=== PATIENT | male | born 1985 | race Caucasian/White ===

== ENCOUNTER → 2020-06-06 15:18 | Outpatient (CLI) | payer OTHER, SELFPAY ==
[2020-06-06 11:29] VITALS: BMI 41.8
== END ==
PROVIDERS: Referring Provider Physician Assistant Surgical; Visit Provider Physician Assistant Surgical
DX: Z20.828 Contact with and (suspected) exposure to other viral communicable diseases (principal)
CPT/HCPCS: 87635; U0003

== ENCOUNTER → 2020-06-20 | Outpatient (CLI) | payer OTHER, SELFPAY ==
[2020-06-06 11:29] VITALS: BMI 41.8
== END | disposition home or self-care (01) ==
LOC: LABSPEC 10:17
PROVIDERS: Visit Provider Physician Assistant Surgical
DX: Z02.89 Encounter for other administrative examinations (principal)
CPT/HCPCS: 87635; U0003

== ENCOUNTER → 2022-10-07 | Outpatient (CLI) | payer OTHER, SELFPAY ==
--- NOTE | 2022-10-07 13:01 | VDLE_ITS ---
Reason For Study: Edema RIGHT LEFT GSV is normal. CFV is compressible, spontaneous, phasic, CFV is compressible, spontaneous, phasic, competent, and demonstrates normal competent and demonstrates normal augmentation. augmentation. FV is compressible, spontaneous, phasic, competent and demonstrates normal augmentation. POP V is compressible, spontaneous, phasic, competent and demonstrates normal augmentation. T/P Trunk is compressible. PTV is compressible. RT PerV is compressible. multiple varicosities noted around patients rt knee. Procedure This is a venous duplex using B-mode, color flow and spectral Doppler. Exam performed in department. The exam was diagnostic. A preliminary report was called and/or faxed to Zaina Skaggs office. VL/Venous Duplex US, Unilateral Interpretation Summary Deep veins of the right lower extremity are patent and compressible segmentally . There is no evidence of right lower extremity deep vein thrombosis. The right great sapheno us vein appears patent and compressible segmentally. Incidental finding, right lower extremity varicosities Ordering Physician: Zaina Skaggs Referring Physician: Zaina Skaggs Performed By: Topher Cowan RVT
== END | disposition home or self-care (01) ==
LOC: CVS 13:00
PROVIDERS: Referring Provider Nurse Practitioner Primary Care; Visit Provider Nurse Practitioner Primary Care
DX: R60.0 Localized edema (principal)
CPT/HCPCS: 93971

== ENCOUNTER 2022-10-25 10:00 | Outpatient (RCR) | payer OTHER, SELFPAY ==
[2022-10-22 09:06] VITALS: BP 130/82; PULSE 81; RESP 20; TEMP 35.9; BMI 47.7
--- NOTE | 2022-10-22 15:10 | PCM.WC.HP ---
History of Present Illness Date of Service: 10/22/22 Chief Complaint: Chronic venous hypertension with inflammation, chronic venous insufficiency, varicose veins with inflammation, history of spontaneous bleeding from a superficial vein?right lower extremity History of Wound: This is a morbidly obese diabetic 37-year-old male who presents with a history of swelling and edema in his lower extremities, and an episode of spontaneous bleeding from the right anterolateral calf which occurred approximately 4 months ago. The bleeding occurred on only 1 occasion, and has not recurred. At the time, the patient states that it really squirted. After applying manual pressure for a period of time, the bleeding ceased. Following that episode, he was treated with Augmentin 875 mg / 125 mg every 12 hours, and Silvadene 1% topical cream to the area. He has more recently been treated for swelling and erythema in his distal right lower extremity, with a prescription for doxycycline and corticosteroids. The patient claims to sleep on a flat mattress at night. He denies a history of thrombophlebitis. Venous duplex examination was performed on October 07, 2022, which was negative for thrombophlebitis, but did not include valvular assessment in the superficial venous system. Patient is employed in [employer] at [employer], and is on his feet for long hours each day. The patient denies a history of hypertension, myocardial infarction, cerebrovascular accident, hyperlipidemia, pulmonary disease, renal disease, and thyroid disease. FOR[facility]LY [facility] Medical History (Updated 10/22/22 @ 15:[address] Richar George MD) Anxiety and depression Back problem Bone fracture Chronic venous hypertension with inflammation involving right side Chronic venous insufficiency of lower extremity Contact with and (suspected) exposure to covid-19 Daytime sleepiness Diabetes mellitus type 2 in obese GERD (gastroesophageal reflux disease) Headache History of migraine headaches Leg edema Leg swelling Morbid obesity with BMI of 45.0-49.9, adult Type 2 diabetes mellitus Varicose veins of both lower extremities with inflammation Home Medications acetaminophen 500 mg tablet (Tylenol Extra Strength) PO 05/20/18 [History Last Taken Unknown] calcium carbonate 200 mg calcium (500 mg) chewable tablet (Tums) 200 mg PO DAILY PRN 05/20/18 [History Last Taken Unknown] glipizide 10 mg tablet 10 mg PO DAILY #30 tabs 05/20/18 [Rx Last Taken Unknown] bromocriptine 0.8 mg tablet (Cycloset) mg 10/22/22 [History Last Taken Unknown] dapagliflozin 10 mg tablet (Farxiga) 10 mg PO DAILY 10/22/22 [History Last Taken Unknown] linagliptin 5 mg tablet (Tradjenta) mg 10/22/22 [History Last Taken Unknown] rosuvastatin 5 mg tablet 5 mg PO DAILY 10/22/22 [History Last Taken Unknown] tetracycline 250 mg capsule 75 mg 10/22/22 [History Last Taken Unknown] Allergy/AdvReac Type Severity Reaction Status Date / Time metformin Allergy Unknown Diarrhea Verified 10/22/22 09:18 shrimp Allergy Angioedema Verified 10/22/22 09:18 semaglutide [From Ozempic] AdvReac Rash Verified 10/22/22 09:18 Family History Grandfather Cancer Diabetes Grandmother Cancer Diabetes Mother Kidney stones Aunt Thyroid cancer Thyroid disorder Social History Smoking Status: Never smoker alcohol intake: never substance use type: does not use Vital Signs Vital Signs Vital Signs: 10/22/22 09:06 Temperature 96.6 F L Temperature Source Temporal Pulse Rate 81 Respiratory Rate 20 H Blood Pressure 130/82 H Blood Pressure Mean 98 Blood Pressure Source Monitor Weight Weight: 352 lb 0.434 oz Body Mass Index (BMI) 47.7 Physical Exam Const alert, oriented x3, no apparent distress and well nourished Constitutional Narrative: The patient is morbidly obese, with a BMI of 48.7. General Appearance: cooperative, comfortable, well kempt and well developed Orientation / Consciousness: awake, oriented to person, oriented to place and oriented to time Exam Limitations: no limitations HEENT normocephalic, head/scalp atraumatic and hearing grossly normal bilaterally Head and Scalp: normal to inspection, normocephalic and atraumatic Face and Sinus: normal facial exam Nose: external nose normal External Ear: external ears normal Eyes PERRL and EOMs intact bilaterally General Eye: normal appearance of both eyes Resp normal respiratory effort, normal air movement, no retractions and no use of accessory muscles Effort and Inspection: able to speak in complete sentences GI GI Narrative: Patient's abdomen is obese. Extremity no calf tenderness General Extremity: Negative for clubbing or cyanosis Skin Wound Narrative: Minimal swelling and edema are noted in the patient's lower extremities bilaterally. There is a slight on the right anterior lateral portion of his calf with some discoloration, said to be the site of spontaneous bleeding approximately 4 months ago. Allison phlebectatica is noted bilaterally at ankle level, as well as scattered varicosities in the lower extremities bilaterally. Neuro oriented x3, CN's II-XII intact bilaterally, moves all extremities and no focal motor deficits Sensorium / Orientation: awake, alert, oriented to person, oriented to place and oriented to time Psych Appearance: grossly normal and appropriate Attitude: calm Activity / Motor Behavior: appropriate eye contact Speech: normal speech Mood & Affect: euthymic mood Thought Process: normal thought process Thought Content: normal thought content Attention / Concentration: attention grossly intact Debridement Note Debridement Note No debridement was completed: No debridement was completed today (There are no open wounds or ulcerations.) Post-Debridement Measurements and Additional Note: Post-Debridement Measurements/Treatment - Nurse 1 - General Ulcer Assessment Start: 10/22/22 09:05 Freq: Status: Active Protocol: TONY Activity Type Activity Date Activity User E-sign Co-sign Detail Recorded Client Recorded Date Recorded By Document 10/22/22 09:06 DL [id number] 10/22/22 09:14 DL 10/22/22 09:06 - Today's Visit Information Type of service Initial Visit Arrival Mode Ambulatory Transfer Assistance None Patient Identification Verified (Name & Yes ) Patient Requires Transmission-Based No Precautions Finger Stick Blood Sugar(mg/dl) (if not checked indicated): Blood Sugar Stated by Patient Height and Weight Height 6 ft Weight 352 lb 0.434 oz Weight in Pounds 352.0 lbs Body Mass Index (BMI) 47.7 BMI Classification Obese BSA - Gabriela 2.71 Vital Signs Temperature (97.8 F-99.1 F) 96.6 F L Temperature Source Temporal Pulse Rate (60-100) 81 Pulse Location Monitor Respiratory Rate (12-18) 20 H Respiratory rate source Observation Blood Pressure (90/60-120/80) 130/82 H Blood Pressure Mean 98 Source Monitor History Since Last Visit- (Skip if this is Patient's initial visit) Left Footwear Regular Shoe Right Footwear Regular Shoe Pain Scale: 0-10 Numeric Is Patient Pain Free? Yes Communication Assessment Preferred language Faroese Able to Read Yes Able to Write No Communication Tools None Right Hearing Abillity Normal Left Hearing Abillity Normal Visual Assistive Devices Glasses Teaching Assessment Preferences Verbal,Written, Demonstration Barriers to Learning None Readiness To Learn Good Willingness to Engage in Self Management Med Activies Readiness to Engage in Self Management Med Activities Anxiety Level Calm Cooperation Cooperative Perception Coherent Interest in Health Problem Asks Questions Education Importance Acknowledges Need Does Patient Smoke tobacco or other No substances Smoking Status Never smoker Is Patient Diabetic Yes Functional Assessment Recent Decline in Ability to Perform Denies Any Declines Culture/Druze/Investigator Internal Affairs Cultural/Druze Needs that may affect No Treatment Plan Would you allow our hospital polish maker to No meet you for the purpose of spiritual/ emotional support? Investigator Internal Affairs to contact place of restorationist No Teaching: Wound Center Discharge Instructions -Person Taught Patient *Welcome to the Wound Center -Person Taught Patient - Nurse 1 - General Ulcer Measurement Start: 10/22/22 09:05 Freq: Status: Active Protocol: Activity Type Activity Date Activity User E-sign Co-sign Detail Recorded Client Recorded Date Recorded By Document 10/22/22 09:06 DL [id number] 10/22/22 09:14 DL 10/22/22 09:06 Wound Center Nurse 1 Right Calf (cm) 52 Right Ankle (cm) 27.5 Left Calf (cm) 51.2 Left Ankle (cm) 27.5 - Nurse 3 - General Ulcer D/C NN Start: 10/22/22 09:05 Freq: Status: Active Protocol: Activity Type Activity Date Activity User E-sign Co-sign Detail Recorded Client Recorded Date Recorded By Document 10/22/22 10:12 MW [id number] 10/22/22 10:14 MW 10/22/22 10:12 Wound Care Center Nurse 3 Right -Lotion applied to leg before No compression wrap -Tubular Bandage Single Layer -Size of Tubigrip Used Size F -Size F ($) 1 Left -Lotion applied to leg before No compression wrap -Tubular Bandage Single Layer -Size of Tubigrip Used Size F -Size F ($) 1 Treatment Response Procedure Tolerated Well Pain Scale: 0-10 Numeric Is Patient Pain Free? No Teaching: Wound Center Compression Wraps & Stockings -Person Taught Patient -Teaching Method Discussion, Demonstration -Response to teaching Verbalize understanding - Visit Discharge Discharge Condition Stable Ambulatory Status Ambulatory Transportation Private Auto Accompanied by self Medication Reconcilliation completed & No provided to patient/care provider Clinical Summary of Care Provided Yes Assessment/Plan Assessment/Plan (1) Chronic venous hypertension with inflammation involving right side: CODE(S): I87.321 - Chronic venous hypertension (idiopathic) with inflammation of right lower extremity (2) Chronic venous insufficiency of lower extremity: CODE(S): I87.2 - Venous insufficiency (chronic) (peripheral) (3) Varicose veins of both lower extremities with inflammation: CODE(S): I83.11 - Varicose veins of right lower extremity with inflammation; I83.12 - Varicose veins of left lower extremity with inflammation (4) Leg swelling: CODE(S): M79.89 - Other specified soft tissue disorders (5) Leg edema: CODE(S): R60.0 - Localized edema (6) Morbid obesity with BMI of 45.0-49.9, adult: CODE(S): E66.01 - Morbid (severe) obesity due to excess calories; Z68.42 - Body mass index [BMI] 45.0-49.9, adult (7) Diabetes mellitus type 2 in obese: CODE(S): E11.69 - Type 2 diabetes mellitus with other specified complication; E66.9 - Obesity, unspecified (8) History of migraine headaches: CODE(S): Z86.69 - Personal history of other diseases of the nervous system and sense organs (9) Daytime sleepiness: CODE(S): R40.0 - Somnolence PLAN: Plan This is a 37-year-old obese diabetic male who presents with a recent history of spontaneous bleeding from a superficial vein on the right anterolateral calf. He has had only 1 such episode, which occurred approximately 4 months ago. He also suffers from bilateral lower extremity swelling and edema, said to be worse at the end of the day. It appears as though the patient has symptoms and manifestations of chronic venous insufficiency, venous hypertension with inflammation, and varicose veins with inflammation. We are to implement conservative treatment measures, all of which have been described in detail to the patient. The patient is to elevate his lower extremities is much as possible. He is to continue sleeping on a flat mattress at night. Leg elevation is to be to heart level, or higher. This is to be implemented even during daytime hours. Prolonged idle sitting has been discouraged. Activity has been encouraged. The importance of weight loss and weight optimization has been discussed. We are to implement the use of graduated compression stockings of 20 to 30 mmHg compression. A prescription for knee-high stockings has been provided, and the patient is to purchase the stockings in the near future, from a medical establishment which can measure and fit appropriately. We are to obtain a venous duplex examination in the near future, which will assess not only deep but also superficial venous patency and competence. The patient will return in 2 weeks for reassessment. He has been instructed to apply pressure and elevate his lower extremities should further episodes of bleeding occur. Optimization of the patient's glycemic control has also been discussed. Tubigrip's of 20 to 30 mmHg compression have been fitted today, and will be used for the short-term until graduated compression stockings can be obtained. Total time: 50 minutes
--- NOTE | 2022-10-25 10:09 | VDLE_ITS ---
Reason For Study: Insufficiency RIGHT LEFT CFV is compressible, spontaneous, phasic, CFV is compressible, spontaneous, phasic, competent and demonstrates normal competent, and demonstrates normal augmentation. augmentation. FV is compressible, spontaneous, phasic, FV is compressible, spontaneous, phasic, competent and demonstrates normal competent and demonstrates normal augmentation. augmentation. POP V is compressible, spontaneous, phasic, POP V is compressible, spontaneous, phasic, competent and demonstrates normal competent and demonstrates normal augmentation. augmentation. T/P Trunk is compressible. T/P Trunk is compressible. PTV is compressible. PTV is compressible. RT PerV is compressible. LT PerV is compressible. SFJ is competent and measures 1.02 x 1.14 cm. SFJ is competent and measures 0.84 x 0.89 cm. GSV proximal thigh measures 0.58 x 0.56 cm. GSV proximal thigh measures 0.53 x 0.47 cm. GSV above knee is INCOMPETENT for greater GSV at knee measures 0.32 x 0.33 cm. than 0.5 seconds. GSV INCOMPETENT throughout for greater than GSV at knee measures 0.37 x 0.37 cm. 0.5 seconds. GSV below knee is competent. ASV mid thigh is INCOMPETENT for greater than ASV junction is INCOMPETENT for greater than 0.5 seconds and measures 0.46 x 0.46 cm. 0.5 seconds and measues 0.70 x 0.64 cm. ASV proximal calf is INCOMPETENT for greater ASV distal thigh is INCOMPETENT for greater than 0.5 seconds and measures 0.23 x 0.23 cm. than 0.5 seconds and measures 0.55 cm. SSV proximal calf is competent and measures ASV at knee is INCOMPETENT for greater than 0.47 x 0.42 cm. 0.5 seconds and measures 0.30 x 0.32 cm. ASV proximal calf is INCOMPETENT for greater than 0.5 seconds and measures 0.50 x 0.51 cm. SSV proximal calf is INCOMPETENT for greater than 0.5 seconds and measures 0.40 x 0.39 cm. Procedure This is a venous duplex using B-mode, color flow and spectral Doppler. Exam performed in department. VL/Venous Duplex US - Terence Extrem Interpretation Summary Deep veins of the lower extremities are bilaterally patent and compressible seg mentally. There is no evidence of deep vein thrombosis on either side. Valvular competence appears in tact within the proximal deep venous systems bilaterally. The great saphenous veins appear bila terally patent and compressible segmentally. Sapheno-femoral junctions are bilaterally competent . The right great saphenous vein appears incompetent above the knee. The right great saphenous ve in appears competent below the knee. The left great saphenous vein appears segmentally incompetent. The right small saphenous vein is patent and incompetent. The left small saphenous vein is pineda nt and competent. The accessory saphenous vein at the right sapheno-femoral junction is incompetent. The accessory saphenous vein at right knee level is incompetent. The accessory saphenous vein in the right distal thigh and proximal calf are incompetent. The accessory saphenous vein in the le ft mid-thigh and proximal calf are incompetent. Ordering Physician: Richar George Referring Physician: Zaina Skaggs Performed By: Kelsey Smith RVT
== END 2022-11-10 23:59 | disposition home or self-care (01) ==
LOC: WC 10:00
PROVIDERS: PCP Nurse Practitioner Primary Care; Referring Provider Surgery; Visit Provider Surgery
DX: I87.321 Chronic venous hypertension (idiopathic) with inflammation of right lower extremity (principal); E11.59 Type 2 diabetes mellitus with other circulatory complications; E66.01 Morbid (severe) obesity due to excess calories; Z68.42 Body mass index [BMI] 45.0-49.9, adult; R60.0 Localized edema; I83.93 Asymptomatic varicose veins of bilateral lower extremities; Z79.84 Long term (current) use of oral hypoglycemic drugs; Z86.69 Personal history of other diseases of the nervous system and sense organs; M79.89 Other specified soft tissue disorders; I83.11 Varicose veins of right lower extremity with inflammation
CPT/HCPCS: 93970; 99213; G0463

== ENCOUNTER 2022-11-12 08:32 | Outpatient (RCR) | payer OTHER, SELFPAY ==
[2022-11-11 00:49] VITALS: BP 130/82; PULSE 81; RESP 20; TEMP 35.9; BMI 47.7
[2022-11-12 08:34] VITALS: BP 140/85; PULSE 81; RESP 20; TEMP 36; BMI 47.7
--- NOTE | 2022-11-12 09:15 | HP.PCM_ITS ---
History of Present Illness Date of Service: 11/12/22 Chief Complaint: Chronic venous hypertension with inflammation, chronic venous insufficiency, varicose veins with inflammation, history of spontaneous bleeding from a superficial vein?right lower extremity History of Wound: This is a morbidly obese diabetic 37-year-old male who presents with a history of swelling and edema in his lower extremities, and an episode of spontaneous bleeding from the right anterolateral calf which occurred approximately 4 months ago. The bleeding occurred on only 1 occasion, and has not recurred. At the time, the patient states that it really squirted. After applying manual pressure for a period of time, the bleeding ceased. Following that episode, he was treated with Augmentin 875 mg / 125 mg every 12 hours, and Silvadene 1% topical cream to the area. He has more recently been treated for swelling and erythema in his distal right lower extremity, with a prescription for doxycycline and corticosteroids. The patient claims to sleep on a flat mattress at night. He denies a history of thrombophlebitis. Venous duplex examination was performed on October 07, 2022, which was negative for thrombophlebitis, but did not include valvular assessment in the superficial venous system. Patient is employed in [employer], and is on his feet for long hours each day. The patient denies a history of hypertension, myocardial infarction, cerebrovascular accident, hyperlipidemia, pulmonary disease, renal disease, and thyroid disease. [facility] Medical History Anxiety and depression Back problem Bone fracture Chronic venous hypertension with inflammation involving right side Chronic venous insufficiency of lower extremity Contact with and (suspected) exposure to covid-19 Daytime sleepiness Diabetes mellitus type 2 in obese GERD (gastroesophageal reflux disease) Headache History of migraine headaches Leg edema Leg swelling Morbid obesity with BMI of 45.0-49.9, adult Type 2 diabetes mellitus Varicose veins of both lower extremities with inflammation Home Medications acetaminophen 500 mg tablet (Tylenol Extra Strength) PO 05/20/18 [History Last Taken Unknown] calcium carbonate 200 mg calcium (500 mg) chewable tablet (Tums) 200 mg PO DAILY PRN 05/20/18 [History Last Taken Unknown] glipizide 10 mg tablet 10 mg PO DAILY #30 tabs 05/20/18 [Rx Last Taken Unknown] bromocriptine 0.8 mg tablet (Cycloset) mg 10/22/22 [History Last Taken Unknown] dapagliflozin 10 mg tablet (Farxiga) 10 mg PO DAILY 10/22/22 [History Last Taken Unknown] linagliptin 5 mg tablet (Tradjenta) mg 10/22/22 [History Last Taken Unknown] rosuvastatin 5 mg tablet 5 mg PO DAILY 10/22/22 [History Last Taken Unknown] tetracycline 250 mg capsule 75 mg 10/22/22 [History Last Taken Unknown] Allergy/AdvReac Type Severity Reaction Status Date / Time metformin Allergy Unknown Diarrhea Verified 10/22/22 09:18 shrimp Allergy Angioedema Verified 10/22/22 09:18 semaglutide [From Ozempic] AdvReac Rash Verified 10/22/22 09:18 Family History Grandfather Cancer Diabetes Grandmother Cancer Diabetes Mother Kidney stones Aunt Thyroid cancer Thyroid disorder Social History Smoking Status: Never smoker alcohol intake: never substance use type: does not use Vital Signs Vital Signs Vital Signs: 11/12/22 08:34 Temperature 96.8 F L Temperature Source Temporal Pulse Rate 81 Respiratory Rate 20 H Blood Pressure 140/85 H Blood Pressure Mean 103 Blood Pressure Source Monitor Weight Weight: 352 lb 0.434 oz Body Mass Index (BMI) 47.7 Physical Exam Const alert, oriented x3, no apparent distress and well nourished Constitutional Narrative: The patient is morbidly obese, with a BMI of 48.7. General Appearance: cooperative, comfortable, well kempt and well developed Orientation / Consciousness: awake, oriented to person, oriented to place and oriented to time Exam Limitations: no limitations HEENT normocephalic, head/scalp atraumatic and hearing grossly normal bilaterally Head and Scalp: normal to inspection, normocephalic and atraumatic Face and Sinus: normal facial exam Nose: external nose normal External Ear: external ears normal Eyes PERRL and EOMs intact bilaterally General Eye: normal appearance of both eyes Resp normal respiratory effort, normal air movement, no retractions and no use of accessory muscles Effort and Inspection: able to speak in complete sentences GI GI Narrative: Patient's abdomen is obese. Extremity no calf tenderness General Extremity: Negative for clubbing or cyanosis Skin Wound Narrative: Minimal swelling and edema are noted in the patient's lower extremities bilaterally. There are no open wounds or ulcerations. There are no significant skin changes. Allison phlebectatica is noted bilaterally at ankle level, as well as scattered varicosities in the lower extremities bilaterally. Neuro oriented x3, CN's II-XII intact bilaterally, moves all extremities and no focal motor deficits Sensorium / Orientation: awake, alert, oriented to person, oriented to place and oriented to time Psych Appearance: grossly normal and appropriate Attitude: calm Activity / Motor Behavior: appropriate eye contact Speech: normal speech Mood & Affect: euthymic mood Thought Process: normal thought process Thought Content: normal thought content Attention / Concentration: attention grossly intact Debridement Note Debridement Note No debridement was completed: No debridement was completed today (There are no open wounds or ulcerations.) Post-Debridement Measurements and Additional Note: Post-Debridement Measurements/Treatment [facility] - Nurse 1 - General Ulcer Assessment Start: 11/12/22 08:34 Freq: Status: Active Protocol: TONY Activity Type Activity Date Activity User E-sign Co-sign Detail Recorded Client Recorded Date Recorded By Document 11/12/22 08:34 DL [id number] 11/12/22 08:39 DL 11/12/22 08:34 WC - Today's Visit Information Type of service Follow-up Visit (Physician/[facility] ) Arrival Mode Ambulatory Transfer Assistance None Patient Identification Verified (Name & Yes ) Patient Requires Transmission-Based No Precautions Finger Stick Blood Sugar(mg/dl) (if not cecked indicated): Blood Sugar Stated by Patient Height and Weight Body Mass Index (BMI) 47.7 BMI Classification Obese Vital Signs Temperature (97.8 F-99.1 F) 96.8 F L Temperature Source Temporal Pulse Rate (60-100) 81 Pulse Location Monitor Respiratory Rate (12-18) 20 H Blood Pressure (90/60-120/80) 140/85 H Blood Pressure Mean 103 Source Monitor History Since Last Visit- (Skip if this is Patient's initial visit) Have you changed medications since your No last visit? Any new allergies or adverse reactions No Had a fall/change in ADL's that may No increase risk of falls Signs or symptoms of abuse and/or No neglect since last visit Have you been in the hospital since your No last visit? Has dressing in place as prescribed Yes Has compression in place as prescribed No Has offloadiing in place as prescribed N/A Left Footwear Regular Shoe Right Footwear Regular Shoe Pain Scale: 0-10 Numeric Is Patient Pain Free? Yes WC - Nurse 1 - General Ulcer Measurement Start: 11/12/22 08:34 Freq: Status: Active Protocol: Activity Type Activity Date Activity User E-sign Co-sign Detail Recorded Client Recorded Date Recorded By Document 11/12/22 08:34 DL [id number] 11/12/22 08:39 DL 11/12/22 08:34 Wound Center Nurse 1 Right Calf (cm) 51 Right Ankle (cm) 27 Left Calf (cm) 50 Point of Measurement (cm from the medial 26.4 instep) Assessment/Plan Assessment/Plan (1) Chronic venous hypertension with inflammation involving right side: CODE(S): I87.321 - Chronic venous hypertension (idiopathic) with inflammation of right lower extremity (2) Chronic venous insufficiency of lower extremity: CODE(S): I87.2 - Venous insufficiency (chronic) (peripheral) (3) Varicose veins of both lower extremities with inflammation: CODE(S): I83.11 - Varicose veins of right lower extremity with inflammation; I83.12 - Varicose veins of left lower extremity with inflammation (4) Leg swelling: CODE(S): M79.89 - Other specified soft tissue disorders (5) Leg edema: CODE(S): R60.0 - Localized edema (6) Morbid obesity with BMI of 45.0-49.9, adult: CODE(S): E66.01 - Morbid (severe) obesity due to excess calories; Z68.42 - Body mass index [BMI] 45.0-49.9, adult (7) Diabetes mellitus type 2 in obese: CODE(S): E11.69 - Type 2 diabetes mellitus with other specified complication; E66.9 - Obesity, unspecified (8) History of migraine headaches: CODE(S): Z86.69 - Personal history of other diseases of the nervous system and sense organs (9) Daytime sleepiness: CODE(S): R40.0 - Somnolence PLAN: Plan This is a 37-year-old obese diabetic male who presents with a history of spontaneous bleeding from a superficial vein on the right anterolateral calf. He has had only 1 such episode, which occurred approximately 4 months prior to presentation. He also suffers from bilateral lower extremity swelling and edema, said to be worse at the end of the day. It appears as though the patient has symptoms and manifestations of chronic venous insufficiency, venous hypertension with inflammation, and varicose veins with inflammation. At this juncture, the swelling and edema in the patient's lower extremities is minimal, and the patient appears to be doing well at this time. There are no open wounds or ulcerations. The patient has been using Tubigrip's daily in both lower extremities. He has previously been provided a prescription for graduated compression stockings of 20 to 30 mmHg compression, knee-high length. He has been instructed to obtain the stockings at a local establishment which can measure and fit the compression stockings appropriately. The stockings are to be worn on a daily basis long-term. In addition, conservative treatment measures are to be continued. These have been described in detail to the patient. The patient is to elevate his lower extremities is much as possible. He is to continue sleeping on a flat mattress at night. Leg elevation is to be to heart level, or higher. This is to be implemented even during daytime hours. Prolonged idle sitting has been discouraged. Activity has been encouraged. The importance of weight loss and weight optimization has been discussed. The patient is to be discharged, and will follow-up henceforth as needed. He has been encouraged to lose weight, at least 25 to 30 pounds. Once achieved, he is to follow-up for consideration of lower extremity superficial venous ablation. A recent venous duplex examination has revealed incompetence of the right great saphenous vein, the right small saphenous vein, and 4 accessory saphenous veins in the right lower extremity. As discussed with the patient, such a procedure is elective, and more optimal following weight optimization. Optimization of the patient's glycemic control has also been discussed. Total time: 24 minutes
== END 2022-11-12 16:25 | disposition home or self-care (01) ==
LOC: WC 08:32
PROVIDERS: PCP Nurse Practitioner Primary Care; Referring Provider Surgery; Visit Provider Surgery
DX: I87.321 Chronic venous hypertension (idiopathic) with inflammation of right lower extremity (principal); E11.59 Type 2 diabetes mellitus with other circulatory complications; E66.01 Morbid (severe) obesity due to excess calories; Z68.42 Body mass index [BMI] 45.0-49.9, adult; R60.0 Localized edema; Z79.84 Long term (current) use of oral hypoglycemic drugs; I83.11 Varicose veins of right lower extremity with inflammation; M79.89 Other specified soft tissue disorders; Z86.69 Personal history of other diseases of the nervous system and sense organs
CPT/HCPCS: 99213; G0463

== ENCOUNTER → 2023-05-19 | Outpatient (CLI) | payer OTHER, SELFPAY ==
--- NOTE | 2023-05-19 14:30 | RAD_ITS ---
HISTORY: COUGH. TECHNIQUE: XR Chest 2 Views. COMPARISON: None. FINDINGS: CARDIOMEDIASTINAL BORDERS: Cardiac silhouette within normal limits in size. Mediastinal contour unremarkable. LUNGS: Radiographically clear. PLEURA: No pleural effusion or pneumothorax seen. OSSEOUS STRUCTURES: Unremarkable. RAD/Chest PA and Lateral IMPRESSION: No acute cardiopulmonary process identified. Electronically Signed: Sandra Nieto MD at 9:54 EST ,
[2023-05-19 17:52] LABS: Absolute Lymphocyte Count 2.18 X10^3/uL (0.83-4.51); Absolute Neutrophil Count 4.1 X10^3/uL (2.0-7.7); Basophil# 0.06 X10^3/uL; Basophil% 0.8 % (0-1); Eosinophil# 0.24 X10^3/uL; Eosinophils% 3.1 % (0-5); Hematocrit 46.4 % (40-54); Hemoglobin 14.6 g/dL (13.0-16.5); Lymphocyte # 2.18 X10^3/ul (0.83-4.51); Lymphocyte % 28.5 % (19-41); Mean Corp Hgb Conc 31.5 g/dL (32-36); Mean Corpuscular Hgb 27.3 pg (27.0-32.0); Mean Corpuscular Volume 86.9 fL (80-94); Mean Platelet Vol. 9.5 fl (6.2-12.0); Monocyte# 1.05 X10^3/uL; Monocyte% 13.7 % (0-10); NRBC Flagged by Analyzer 0 % (0-5); Neutrophil % 53.5 % (47-70); Platelet Count 259 K/mm3 (150-450); RBC Distribution Width SD 47.9 fl (35.1-43.9); Red Blood Count 5.34 M/mm3 (4.6-6.2); White Blood Count 7.7 K/mm3 (4.4-11.0)
[2023-05-19 18:24] LABS: ALB/GLOB Ratio 1.1 RATIO (0.9-2.4); AST(SGOT) 19 U/L (15-37); Alanine Aminotransfer ALT/SGPT 37 U/L (16-61); Albumin, Serum 3.7 g/dL (3.2-5.0); Alkaline Phosphatase 62 U/L (45-117); Anion Gap 7 (5-15); BUN 21 mg/dL (7-18); BUN/Creat Ratio 17.8 RATIO (10-20); Chloride 104 mmol/L (98-107); Creatinine, Serum 1.18 mg/dL (0.70-1.30); EST Glomerular Filtration Rate 74 mL/min (>60); Est Glom Filt Rate - Afr Amer 89 mL/min (>60); Globulin 3.5 g/dL (2.2-4.2); Glucose 109 mg/dL (74-106); Potassium 3.8 mmol/L (3.5-5.1); Protein, Total 7.2 g/dL (6.4-8.2); Sodium Level 137 mmol/L (136-145)
== END | disposition home or self-care (01) ==
LOC: MTLAB 14:22
PROVIDERS: PCP Nurse Practitioner Primary Care; Referring Provider Nurse Practitioner Family; Visit Provider Nurse Practitioner Family
DX: R05.8 Other specified cough (principal); R06.2 Wheezing; Z87.01 Personal history of pneumonia (recurrent)
CPT/HCPCS: 36415; 71046; 80053; 85025; 86140

== ENCOUNTER → 2024-03-12 | Outpatient (CLI) | payer OTHER, SELFPAY ==
[2024-03-12 13:54] LABS: Microalbumin,Random Urine 5.5 mg/L (NO RANGE EST.)
[2024-03-12 16:29] LABS: ALB/GLOB Ratio 1.1 RATIO (0.9-2.4); AST(SGOT) 15 U/L (15-37); Alanine Aminotransfer ALT/SGPT 27 U/L (16-61); Albumin, Serum 3.6 g/dL (3.2-5.0); Alkaline Phosphatase 66 U/L (45-117); Anion Gap 8 (5-15); BUN 19 mg/dL (7-18); BUN/Creat Ratio 22.5 RATIO (10-20); Calcium,Total 9.1 mg/dL (8.5-10.1); Chloride 106 mmol/L (98-107); Cholesterol 123 mg/dL (200); Creatinine, Serum 0.85 mg/dL (0.70-1.30); EST Glomerular Filtration Rate 107 mL/min (>60); Est Glom Filt Rate - Afr Amer 130 mL/min (>60); Globulin 3.2 g/dL (2.2-4.2); Glucose 96 mg/dL (74-106); High Density Lipoprotein 43 mg/dL; Potassium 4.2 mmol/L (3.5-5.1); Protein, Total 6.8 g/dL (6.4-8.2); Sodium Level 140 mmol/L (136-145); Thyroid Stim Hormone (TSH) 0.943 uIU/mL (0.358-3.740); Triglycerides 109 mg/dL; Very Low Density Lipoprotein 22 mg/dL (5-40)
== END | disposition home or self-care (01) ==
LOC: MTLAB 11:08
PROVIDERS: PCP Nurse Practitioner Primary Care; Referring Provider Physician Assistant; Visit Provider Physician Assistant
DX: E11.9 Type 2 diabetes mellitus without complications (principal); E04.8 Other specified nontoxic goiter; E78.2 Mixed hyperlipidemia; E55.9 Vitamin D deficiency, unspecified
CPT/HCPCS: 36415; 80053; 80061; 82043; 82306; 84443

== ENCOUNTER → 2025-01-28 | Outpatient (CLI) | payer OTHER, SELFPAY | END | disposition home or self-care (01) | LOC: SL 11:21 | PROVIDERS: PCP Nurse Practitioner Primary Care; Referring Provider Nurse Practitioner Family; Visit Provider Nurse Practitioner Family | DX: G47.19 Other hypersomnia (principal); R06.83 Snoring | CPT/HCPCS: 95806 ==

== ENCOUNTER → 2025-03-25 | Outpatient (CLI) | payer OTHER, SELFPAY | END | disposition home or self-care (01) | LOC: SL 11:03 | PROVIDERS: PCP Nurse Practitioner Primary Care; Referring Provider Nurse Practitioner Family; Visit Provider Nurse Practitioner Family | DX: Z46.89 Encounter for fitting and adjustment of other specified devices (principal) ==